=== PATIENT | female | born 1970 | race Caucasian/White ===

== ENCOUNTER 2017-12-28 17:08 | Emergency (ER) | payer OTHER ==
[~2017-12-28] VITALS: Ht 165.1 cm; Wt 70.0 kg
[2017-12-28 18:01] LABS: HEMATOCRIT 40.5 % (36.0-46.0); HEMOGLOBIN 13.9 G/DL (11.9-15.5); MCH 30.8 PG (29.0-34.0); MCHC 34.3 G/DL (30.0-36.0); MCV 89.6 FL (83-99); PLATELET COUNT 290 K/uL (156-360); RBC DIS.WIDTH-CV 12.4 % (11.8-14.6); RBC DIS.WIDTH-SD 40.8 % (39-53); RED BLOOD COUNT 4.52 M/uL (3.80-5.20); WHITE BLOOD COUNT 7.8 K/uL (4.1-10.2)
[2017-12-28 18:17] LABS: CHLORIDE 105 mEq/L (99-109)
[2017-12-28 18:18] LABS: POTASSIUM 3.6 mEq/L (3.7-5.4); SODIUM 138 mEq/L (136-147)
[2017-12-28 18:19] LABS: GLUCOSE 94 mg/dL (70-99)
[2017-12-28 18:23] LABS: CREATININE 0.7 mg/dL (0.6-1.3); GFR ESTIMATE (CALCULATED) > 59 mL/min/
[2017-12-28 18:24] LABS: UREA NITROGEN (BUN) 11 mg/dL (9-23)
[2017-12-28 18:29] LABS: TROP-I INTERPRETATION NEGATIVE; TROPONIN-I < 0.01 ng/mL (0.0-0.30)
[2017-12-28 20:43] LABS: D-DIMER ELISA < 150.00 ng/mLDDU (<230)
[2017-12-28] MEDS ORDERED: VENTOLIN HFA18 GM IH (20:44)
[2017-12-28] MEDS ORDERED: PREDNISONE50 MG PO (20:44)
[2017-12-28 20:57] VITALS: BP 124/80
== END 2017-12-28 20:57 | disposition home or self-care (01) ==
LOC: EME 17:08 → RME 17:08
DX: J30.2 Other seasonal allergic rhinitis (principal); R06.00 Dyspnea, unspecified; R06.2 Wheezing; F17.200 Nicotine dependence, unspecified, uncomplicated
CPT/HCPCS: 80048; 84484; 85027; 85379; 93005; 99281; 99283

== ENCOUNTER 2018-01-05 16:18 | Emergency (ER) | payer OTHER ==
[~2018-01-05] VITALS: Ht 165.1 cm; Wt 72.7 kg
[~2018-01-05 16:18] MED LIST: PREDNISONE50 MG PO; VENTOLIN HFA18 GM IH
[2018-01-05 17:22] LABS: HEMATOCRIT 42.6 % (36.0-46.0); HEMOGLOBIN 14.4 G/DL (11.9-15.5); MCH 30.5 PG (29.0-34.0); MCHC 33.8 G/DL (30.0-36.0); MCV 90.3 FL (83-99); PLATELET COUNT 292 K/uL (156-360); RBC DIS.WIDTH-CV 12.8 % (11.8-14.6); RBC DIS.WIDTH-SD 42.3 % (39-53); RED BLOOD COUNT 4.72 M/uL (3.80-5.20); WHITE BLOOD COUNT 12.4 K/uL (4.1-10.2)
[2018-01-05 17:31] LABS: CHLORIDE 101 mEq/L (99-109); POTASSIUM 3.4 mEq/L (3.7-5.4); SODIUM 140 mEq/L (136-147)
[2018-01-05 17:33] LABS: GLUCOSE 87 mg/dL (70-99)
[2018-01-05 17:36] LABS: CREATININE 0.8 mg/dL (0.6-1.3); GFR ESTIMATE (CALCULATED) > 59 mL/min/
[2018-01-05 17:37] LABS: UREA NITROGEN (BUN) 12 mg/dL (9-23)
[2018-01-05 17:42] LABS: TROP-I INTERPRETATION NEGATIVE; TROPONIN-I < 0.01 ng/mL (0.0-0.30)
[2018-01-05 18:50] VITALS: BP 160/100
== END 2018-01-05 18:51 | disposition left against medical advice (07) ==
LOC: EME 16:18
DX: R07.9 Chest pain, unspecified (principal); R06.02 Shortness of breath; I45.10 Unspecified right bundle-branch block; F17.200 Nicotine dependence, unspecified, uncomplicated; Z71.6 Tobacco abuse counseling
CPT/HCPCS: 71046; 80048; 81003; 84484; 85027; 93005; 99281; 99284